=== PATIENT | male | born 1950 | race Caucasian/White ===

== ENCOUNTER 2017-01-14 12:42 | Emergency (ER) | payer BC, OTHER ==
[2017-01-14 12:57] VITALS: BP 155/91
--- NOTE | 2017-01-14 13:24 | ER Document Report ---
ED Extremity Problem, Lower - General Mode of Arrival: Ambulatory Information source: Patient TRAVEL OUTSIDE OF THE [place] IN LAST 30 DAYS: No - HPI Patient complains to provider of: Other - Varicose vein that bleeds frequently on his right leg Location: Leg Occurred: Other - Several days Onset/Duration: Intermittent Quality of pain: Burning Severity: Moderate Pain Level: 4 Recent injury: No Associated symptoms: Other - Varicose vein that is frequently bleeding Exacerbated by: Hanging down, Movement Relieved by: Nothing - General Chief Complaint: Leg Pain Stated Complaint: RIGHT LEG BLEEDING Time Seen by Provider: 01/14/17 13:09 Notes: 66-year-old male presents to ED for varicose vein in his right leg did that has been bleeding off and on. He states that it started again this morning he was able to stop and with a Band-Aid. There is no active bleeding at this time. He denies any pain or discomfort. He states she is going night on a ship with [place] and he needs to have something done. (YOSEPH PEDERSON) - Related Data Allergies/Adverse Reactions: No Known Allergies Allergy (Unverified 01/14/17 12:54) Past Medical History - General Information source: Patient - Social History Smoking Status: Never Smoker Cigarette use (# per day): No Chew tobacco use (# tins/day): No Smoking Education Provided: No Frequency of alcohol use: Social Drug Abuse: None Occupation: [employer] administrator Lives with: Family Family History: Arthritis, Malignancy, Thyroid Disfunction. denies: CAD, COPD, CVA, DM, Hyperlipidemia, Hypertension Patient has suicidal ideation: No - Past Medical History Cardiac Medical History: Reports: Hx Atrial Fibrillation, Hx Hypercholesterolemia Pulmonary Medical History: Reports: Hx Sleep Apnea Neurological Medical History: Reports: None Endocrine Medical History: Reports: None Renal/ Medical History: Reports: None Malignancy Medical History: Reports Hx Skin Cancer GI Medical History: Reports: Hx Diverticulitis, Hx Gastroesophageal Reflux Disease, Hx Hiatal Hernia, Hx Colonoscopy, Hx Endoscopy Musculoskeltal Medical History: Reports Hx Arthritis, Reports Hx Musculoskeletal Deformity, Reports Hx Musculoskeletal Trauma Skin Medical History: Reports None Psychiatric Medical History: Reports: None Traumatic Medical History: Reports: None Infectious Medical History: Reports: None Past Surgical History: Reports: Hx Appendectomy, Hx Cardiac Catheterization - 2 , Hx Cardiac Surgery - ablation, Hx Inguinal Hernia - 2 on the left one on right , Hx Orthopedic Surgery - Rotator cuff bilateral right shoulder replacement, Hx Tonsillectomy - Immunizations Hx Diphtheria, Pertussis, Tetanus Vaccination: Yes Review of Systems - Review of Systems Constitutional: No symptoms reported EENT: No symptoms reported Cardiovascular: No symptoms reported Respiratory: No symptoms reported Gastrointestinal: No symptoms reported Genitourinary: No symptoms reported Male Genitourinary: No symptoms reported Musculoskeletal: No symptoms reported Skin: Other - varicose veins to right leg intermittent bleeding Hematologic/Lymphatic: No symptoms reported Neurological/Psychological: No symptoms reported -: Yes All other systems reviewed and negative Physical Exam - Vital signs Interpretation: Normal - General General appearance: Appears well, Alert - HEENT Head: Normocephalic, Atraumatic Eyes: Normal Pupils: PERRL - Respiratory Respiratory status: No respiratory distress Chest status: Nontender Breath sounds: Normal Chest palpation: Normal - Cardiovascular Rhythm: Regular Heart sounds: Normal auscultation Murmur: No - Abdominal Inspection: Normal Distension: No distension Bowel sounds: Normal Tenderness: Nontender Organomegaly: No organomegaly - Back Back: Normal, Nontender - Extremities General upper extremity: Normal inspection, Nontender, Normal color, Normal ROM , Normal temperature General lower extremity: Nontender, Normal color, Normal ROM, Normal temperature , Normal weight bearing. No: Mee's sign Calf: Other - Intermittent bleeding from a varicose vein right lower leg, mild swelling. - Neurological Neuro grossly intact: Yes Cognition: Normal Orientation: AAOx4 Jose F Coma Scale Eye Opening: Spontaneous [place] Coma Scale Verbal: Oriented [place] Coma Scale Motor: Obeys Commands Jose F Coma Scale Total: 15 Speech: Normal Motor strength normal: LUE, RUE, LLE, RLE Sensory: Normal - Psychological Associated symptoms: Normal affect, Normal mood - Skin Skin Temperature: Warm Skin Moisture: Dry Skin Color: Normal - Vital signs Vitals: Temp Pulse Resp BP Pulse Ox 98.0 F 57 L 20 155/91 H 97 01/14/17 12:56 01/14/17 12:56 01/14/17 12:56 01/14/17 12:56 01/14/17 12:56 Course - Re-evaluation Re-evalutation: 01/14/17 14:[address] yoshi mallory who came and saw the patient we discussed the use of let to the area if it starts to bleed again. Patient was provided with a dose of blood and instructions on how to use it to the area. There was no bleeding at this time. A Live wrap was applied to the area with gauze underneath of the wrap to apply pressure to the area. Patient was encouraged to see a surgeon to have the varicose veins removed. Patient states he is getting ready to get on the ship as he is a member of [employer]. States he does not have time to have surgery on this at this time. This is why he was provided with the epinephrine in case he does have another bleeding vein. Patient was encouraged to use support stockings for the swelling and varicose veins. (YOSEPH PEDERSON) 01/14/17 21:56 I did personally see and examine this patient, as the patient does intermittently have bleeding from the varicose veins and it worsens when he stands for long time and he is about to go out on a ship for a month I recommended that we give him a dose of LET from the emergency department, wear compression hose, use pressure to stop any bleeding when he has it. See a vascular surgeon or heat sealing machine operator as an outpatient to possibly have his veins stripped. Patient will be discharged to home. No active bleeding at this time , we did not wish to place sutures around his varicosities for fear of starting more bleeding. (EVERTON TORRES) - Vital Signs Vital signs: Temp Pulse Resp BP Pulse Ox 98.0 F 57 L 20 155/91 H 97 01/14/17 12:56 10 12:56 10 12:56 01/14/17 12:56 01/14/17 12:56 Discharge - Discharge Clinical Impression: Varicose vein of leg Condition: Stable Disposition: HOME, SELF-CARE Additional Instructions: Varicose Veins You have varicose veins. These are veins that bulge out under the skin. They develop when the valves in the veins fail. These valves normally keep blood moving upstream towards the heart. Without the valves, the pressure of the blood expands and weakens the veins. Varicose veins may simply be unsightly. But often they cause aching pains in the legs, especially after standing. There may be itching and irritation. Occasionally a vein may become clotted, with redness, tenderness, and swelling. Elevate your legs periodically during the day. Support hose can help. Don' t rub or scratch at bulging veins -- this makes them worse. Don't sit with your legs crossed. Avoid standing in one place for more than a few minutes. Walking reduces the pressure in the veins. If varicose veins continue to cause severe symptoms, an operation to remove them ("vein stripping") might help. Call the doctor or return if there is increased swelling, redness, or fever , if there is general leg pain, or if a varicose veins bleeds and won't stop after 15 minutes of direct pressure. Live Wrap A compression dressing (live wrap) has been placed. This helps hold the area still. It limits swelling and internal bleeding. The wrap should be comfortably snug -- not tight. You should feel a sense of pressure, but not severe pain under the wrap. Unless the physician tells you otherwise, you can adjust the wrap for comfort. If the wrap causes symptoms suggesting it's too tight -- uncomfortable pressure, swelling or discoloration beyond the wrap, numbness, or severe pain - - you must loosen the wrap. If these symptoms don't resolve promptly, return for re-evaluation. Support hose when standing tried to elevate legs as much as possible. If your leg starts bleeding again apply the let alone because the patient has a Live wrap over top. Do not disturb for at least 15-20 minutes. You need to see a vascular surgeon to try to remove most of your varicose veins due to frequent bleeding from the varicose veins. The way to prevent this bleeding is to remove the varicose veins. FOLLOW-UP CARE: If you have been referred to a physician for follow-up care, call the physician s office for an appointment as you were instructed or within the next two days. If you experience worsening or a significant change in your symptoms, notify the physician immediately or return to the Emergency Department at any time for re-evaluation.
[2017-01-14] MEDS ORDERED: LIDOCAINE 4%/TETRACAINE 0.5%/EPI 0.18% 5 ML TOPICAL SOLN TOP ONE (13:53)
== END 2017-01-14 14:07 | disposition home or self-care (01) ==
LOC: ER 12:42
DX: I83.891 Varicose veins of right lower extremity with other complications (principal); Z85.3 Personal history of malignant neoplasm of breast
CPT/HCPCS: 99283; J3490

== ENCOUNTER 2018-05-07 11:23 | Emergency (ER) | payer BC ==
[2018-05-07] MEDS ORDERED: IBUPROFEN 800 MG TABLET PO ONE (12:37)
--- NOTE | 2018-05-07 13:12 | RADIOLOGY REPORT (SQ) ---
EXAM DESCRIPTION: FOOT LEFT COMPLETE COMPLETED DATE/TIME: 05/07/2018 12:55 pm REASON FOR STUDY: L lat foot pain, struck counter, heard pop COMPARISON: None. NUMBER OF VIEWS: Three views. TECHNIQUE: AP, lateral and oblique radiographic images acquired of the left foot. LIMITATIONS: None. FINDINGS: MINERALIZATION: Normal. BONES: No acute fracture or dislocation. No worrisome bone lesions. JOINTS: No effusions. SOFT TISSUES: No soft tissue swelling. No foreign body. OTHER: No other significant finding. IMPRESSION: NEGATIVE STUDY OF THE LEFT FOOT. NO RADIOGRAPHIC EVIDENCE OF ACUTE INJURY. TECHNICAL DOCUMENTATION: JOB ID: [id number] [employer]- All Rights Reserved Reading location - IP/workstation name: [email or web address]
--- NOTE | 2018-05-07 13:34 | ER Document Report ---
HPI - HPI Patient complains to provider of: Foot injury Time Seen by Provider: 05/07/18 12:31 Onset: Yesterday Onset/Duration: Sudden Quality of pain: Achy Pain Level: 2 Context: Patient states that he was walking and socks and slipped hitting his foot against the counter. Patient states that he felt a pop in his foot. Patient complains of pain with ambulation since then. Associated Symptoms: Other - left foot Exacerbated by: Movement, Walking Relieved by: Denies Similar symptoms previously: No Recently seen / treated by doctor: No - ROS ROS below otherwise negative: Yes Systems Reviewed and Negative: Yes All other systems reviewed and negative - CONSTITUTIONAL Constitutional: DENIES: Fever, Chills - MUSCULOSKELETAL Musculoskeletal: REPORTS: Extremity pain - left foot with rotation - DERM Skin Color: Normal Skin Problems: None Past Medical History - General Information source: Patient - Social History Smoking Status: Never Smoker Chew tobacco use (# tins/day): No Frequency of alcohol use: Rare Occupation: [employer] Lives with: Spouse/Significant other Family History: Arthritis, Malignancy, Thyroid Disfunction. denies: CAD, COPD, CVA, DM, Hyperlipidemia, Hypertension Patient has suicidal ideation: No Patient has homicidal ideation: No - Past Medical History Cardiac Medical History: Reports: Hx Atrial Fibrillation, Hx Hypercholesterolemia Pulmonary Medical History: Reports: Hx Sleep Apnea Renal/ Medical History: Denies: Hx Peritoneal Dialysis Malignancy Medical History: Reports Hx Skin Cancer GI Medical History: Reports: Hx Diverticulitis, Hx Gastroesophageal Reflux Disease, Hx Hiatal Hernia, Hx Colonoscopy, Hx Endoscopy Musculoskeletal Medical History: Reports Hx Arthritis, Reports Hx Musculoskeletal Deformity, Reports Hx Musculoskeletal Trauma Past Surgical History: Reports: Hx Abdominal Surgery - inguinal hernia, Hx Appendectomy, Hx Cardiac Catheterization - 2, Hx Cardiac Surgery - ablation x 3, Hx Inguinal Hernia - 2 on the left one on right, Hx Orthopedic Surgery - Rotator cuff bilateral right shoulder replacement, Hx Tonsillectomy - Immunizations Hx Diphtheria, Pertussis, Tetanus Vaccination: Yes Vertical Provider Document - CONSTITUTIONAL Agree With Documented VS: Yes Exam Limitations: No Limitations General Appearance: WD/WN, No Apparent Distress - INFECTION CONTROL TRAVEL OUTSIDE OF THE [place] IN LAST 30 DAYS: No - HEENT HEENT: Atraumatic, Normocephalic - NECK Neck: Normal Inspection - RESPIRATORY Respiratory: Breath Sounds Normal, No Respiratory Distress - CARDIOVASCULAR Cardiovascular: Regular Rate, Regular Rhythm Pulses: Normal: Dorsalis pedis - MUSCULOSKELETAL/EXTREMETIES Musculoskeletal/Extremeties: MAEW, FROM, Tender - Tenderness over base of left fifth metatarsal. negative: Eccymosis - NEURO Level of Consciousness: Awake, Alert, Appropriate Motor/Sensory: No Motor Deficit - DERM Integumentary: Warm, Dry, No Rash Course - Re-evaluation Re-evalutation: 05/07/18 13:32 No obvious fracture, will treat as sprain at this time. - Vital Signs Vital signs: Temp Pulse Resp BP Pulse Ox 98.0 F 60 18 129/86 H 96 05/07/18 11:31 05/07/18 11:31 05/07/18 11:31 05/07/18 11:31 05/07/18 11:31 - Diagnostic Test Radiology reviewed: Image reviewed, Reports reviewed Procedures - Immobilization Left Foot Pre-Proc Neuro Vasc Exam: Normal Immobilizer type: Ankle stirrup, Post-op shoe Performed by: PCT Post-Proc Neuro Vasc Exam: Normal Alignment checked and good: Yes Discharge - Discharge Clinical Impression: Sprain of left foot Qualifiers: Encounter type: initial encounter Qualified Code(s): S93.602A - Unspecified sprain of left foot, initial encounter Condition: Stable Disposition: HOME, SELF-CARE Instructions: Live Wrap ([facility]), Use of Crutches ([facility]), Ice & Elevation ([facility]), Post-Op Shoe ([facility]), Sprain ([facility]) Additional Instructions: Return immediately for any new or worsening symptoms Followup with your primary care provider, call tomorrow to make a followup appointment Weightbearing as tolerated Follow-up with orthopedics for any persistent pain or problems Prescriptions: Naproxen [Naprosyn 250 Nmg Tablet] 1 tab PO BID #14 tablet Referrals: [facility] [Provider Group] - Follow up as needed
[2018-05-07 14:21] VITALS: BP 122/78
== END 2018-05-07 14:05 | disposition home or self-care (01) ==
LOC: ER 11:23
DX: S93.602A Unspecified sprain of left foot, initial encounter (principal); W22.09XA Striking against other stationary object, initial encounter
CPT/HCPCS: 99283